=== PATIENT | male | born 1975 | race Caucasian/White ===

== ENCOUNTER 2018-10-07 08:21 | Emergency (ER) | payer OTHER ==
[~2018-10-07] VITALS: Ht 182.9 cm; Wt 106.5 kg
[~2018-10-07 08:21] MED LIST: BENZ-6 PO; FLUT9.9S NASAL; OXYM15SP34 NASAL
[2018-10-07 08:26] VITALS: BP 155/65; PULSE 72; RESP 20; Ht 182.9 cm; Wt 106.5 kg
--- NOTE | 2018-10-07 09:47 | ERD ---
ER Documentation Chief Complaint Chief Complaint cough, chest and nasal congeston , headache x 1week HPI Is a 43-year-old male patient who presents emergency room with complaint of nonproductive cough, nasal congestion x1 week. Patient denies fevers, no nasal discharge, patient does smoke half pack of cigarettes daily. 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 ROS All systems reviewed and are negative except as per history of present illness. Medications Home Meds Active Scripts Oxymetazoline Hcl* (Afrin Rydal*) 0.05% - 15 Ml Rydal, 2 SPRAYS NASAL BID for NASAL CONGESTION for 5 Days, #1 EA to each nostril Prov:SE ODONNELL NP 10/07/18 Fluticasone Propionate (Flonase Allergy Relief) 9.9 Ml Rydal.susp, 2 SPRAY NASAL BID for 14 Days, #1 BOTTLE TO EACH NOSTRIL Prov:SE ODONNELL NP 10/07/18 Benzonatate* (Tessalon Perle*) 100 Mg Capsule, 200 MG PO Q8H PRN for COUGH for 5 Days, #20 CAP Prov:SE ODONNELL NP 10/07/18 Allergies Allergies: Coded Allergies: No Known Allergy (Unverified , 10/07/18) PMhx/Soc Medical and Surgical Hx: pt denies Medical Hx, pt denies Surgical Hx Hx Alcohol Use: Yes Hx Substance Use: Yes (MARIJUANA) Hx Tobacco Use: Yes Smoking Status: Current every day smoker FmHx Family History: No diabetes, No coronary disease, No other Physical Exam Vitals Vital Signs Date Temp Pulse Resp B/P (MAP) Pulse Ox O2 O2 Flow FiO2 Time Delivery Rate 10/07/18 98.7 72 20 155/65 97 08:26 (95) Physical Exam Const: No acute distress Head: Atraumatic Eyes: Normal Conjunctiva, PERRL ENT: Normal External Ears, TM clear BL. Pharynx pink, moist, no lesions, no exudate, uvula midline. No petechiae. Neck: Full range of motion. No meningismus. No lymphadenopathy. Resp: Clear to auscultation bilaterally, no wheezing, no rales, no rhonchi. Cardio: Regular rate and rhythm, no murmurs Abd: Soft, non tender, non distended. Normal bowel sounds, no CVT Skin: No petechiae or rashes Neur: Awake and alert, clear speech, steady gait. Psych: Normal Mood and Affect Procedures/MDM PROCEDURES/MDM DIAGNOSTIC IMAGING: Read by radiologist. Negative chest x-ray MDM: At the time of discharge the patient looked well with normal vital signs, normal work of breathing, adequate oxygenation. It was felt that the patient was suffering from a viral cause of patients symptoms. Without fever, sinus pain, sinus discharge, productive cough, it is unlikely that the patient's symptoms have a bacterial cause and therefore no antibiotic was prescribed. Low suspicion for pneumonia, malignancy, sepsis, PE, pneumothorax, FB aspiratin, or COPD. Patient was instructed on red flag signs and symptoms and when to return to the emergency room. Patient was instructed on increasing hydration, and use of prescribed medications to control patient's symptoms. Patient was counseled on smoking cessation. DISPOSITION and PLAN: RX: Benzonatate, Afrin, Flonase The patient has been discharge home to follow-up with community physician. Departure Diagnosis: Primary Impression: Cough Additional Impression: Viral URI with cough Condition: Stable Patient Instructions: Tips for Quitting Smoking (Cardiovascular), Cough, Chronic, Uncertain Cause, (Adult), Uri, Viral, No Abx (Adult) [facility]: [facility] Usted se zhu hecho un examen mdico de control que le indica que no est en cassie condicin que requiera tratamiento urgente en el Departamento de Emergencia. Un estudio ms profundo y el tratamiento de ryan condicin pueden esperar sin ningn riesgo hasta que usted sea atendida/o en el consultorio de ryan mdico o cassie clnica. Es responsabilidad suya arreglar cassie pal para el seguimiento del anuja. MANEJO DE CONDICIONES NO URGENTES EN EL FUTURO 1) Si usted tiene un mdico de atencin primaria: Usted debera llamar a ryan mdico de atencin primaria antes de venir al departamento de emergencia. Despus de las horas de consultorio, ryan doctor o ryan asociado/a est disponible por telfono. El mdico o enfermero de shane en el servicio telefnico puede asesorarle por marianne medio para atender el problema, o anuja contrario se puede programar cassie pal. 2) Si usted no tiene un mdico de atencin primaria: Llame al mdico o clnica de referencia que aparece abajo latonya las horas de consultorio para hacer cassie pal para que le vean. CLINICAS: [facility] [id number] [facility] [phone] [facility] [phone] [facility] [phone] [address] [facility] [phone] [address] [facility] [phone] [facility] () Usted se zhu hecho un examen mdico de control que le indica que no est en cassie condicin que requiera tratamiento urgente en el Departamento de Emergencia. Un estudio ms profundo y el tratamiento de ryan condicin pueden esperar sin ningn riesgo hasta que usted sea atendida/o en el consultorio de ryan mdico o cassie clnica. Es responsabilidad suya arreglar cassie pal para el seguimiento del anuja. MANEJO DE CONDICIONES NO URGENTES EN EL FUTURO 1) Si usted tiene un mdico de atencin primaria: Usted debera llamar a ryan mdico de atencin primaria antes de venir al departamento de emergencia. Despus de las horas de consultorio, ryan doctor o ryan asociado/a est disponible por telfono. El mdico o enfermero de shane en el servicio telefnico puede asesorarle por marianne medio para atender el problema, o anuja contrario se puede programar cassie pal. 2) Si usted no tiene un mdico de atencin primaria: Llame al mdico o condado institucions de referencia que aparece abajo latonya las horas de consultorio para hacer cassie pal para que le vean. SI USTED NO PUEDE PAGAR PARA SYDNEE UN MEDICO puede ir a: [facility] [id number] [place] [address] [facility] [address] [place] [address] [facility] [address] [place] [address] [facility] [address] [place] [address] SE ODONNELL NP Oct 07, 2018 09:47
== END 2018-10-07 11:00 | disposition home or self-care (01) ==
LOC: FTE 08:21
DX: J06.9 Acute upper respiratory infection, unspecified (principal); F17.210 Nicotine dependence, cigarettes, uncomplicated
CPT/HCPCS: 71046; Z7502